=== PATIENT | female | born 1985 | race Caucasian/White ===

== ENCOUNTER 2022-08-22 08:09 | Emergency (ER) | payer MEDICAID ==
[~2022-08-22] VITALS: Ht 167.6 cm; Wt 113.6 kg
[2022-08-22 08:11] VITALS: BP 125/76
[2022-08-22] MEDS ORDERED: KEN0.1O TP (09:14)
[2022-08-22] MEDS ORDERED: ONDA4TAB12 PO (09:14)
== END 2022-08-22 09:21 | disposition home or self-care (01) ==
LOC: ER 08:10
DX: R11.2 Nausea with vomiting, unspecified (principal); L25.9 Unspecified contact dermatitis, unspecified cause; F31.9 Bipolar disorder, unspecified; F20.9 Schizophrenia, unspecified; F17.200 Nicotine dependence, unspecified, uncomplicated; Z88.2 Allergy status to sulfonamides; Z79.899 Other long term (current) drug therapy
CPT/HCPCS: 99283

== ENCOUNTER 2022-09-07 16:39 | Emergency (ER) | payer MEDICAID ==
[~2022-09-07] VITALS: Ht 167.6 cm; Wt 118.0 kg
[~2022-09-07 16:39] MED LIST: ONDA4TAB12 PO
[2022-09-07 16:45] VITALS: BP 147/97
== END 2022-09-07 20:57 | disposition home or self-care (01) ==
LOC: ER 16:40
DX: S93.401A Sprain of unspecified ligament of right ankle, initial encounter (principal); F31.9 Bipolar disorder, unspecified; Z88.2 Allergy status to sulfonamides; W18.40XA Slipping, tripping and stumbling without falling, unspecified, initial encounter; Y93.89 Activity, other specified; Y92.89 Other specified places as the place of occurrence of the external cause; Y99.8 Other external cause status
CPT/HCPCS: 29515; 73610; 99284; L1930